=== PATIENT | female | born 1955 | race Caucasian/White ===

== ENCOUNTER 2017-03-12 15:00 | Inpatient (IN) | payer BC ==
[~2017-03-12] VITALS: Ht 170.2 cm; Wt 109.1 kg
--- NOTE | 2017-03-12 15:25 | ERA ---
ER Documentation Chief Complaint Date/Time DATE: 03/12/17 TIME: 15:25 Chief Complaint CAME IN VIA EMS DUE TO MECHANICAL FALL WITH LEFT ARM DEFORMATY HPI 61-year-old female presents to the ED by rescue ambulance complaining of severe pain and deformity of the left wrist and forearm after a trip and fall. She denies to be, head injury, loss of consciousness neck or back pain. No chest pain, palpitations shortness of breath. No abdominal pain, nausea vomiting. No elbow or shoulder pain. ROS All systems reviewed and are negative except as per history of present illness. Medications Home Meds Reported Medications Levothyroxine Sodium* (Levothyroxine Sodium*) 75 Mcg Tablet, 75 MCG PO BEFORE BREAKFAST, #30 TAB 03/12/17 Allergies Allergies: Coded Allergies: Penicillins (Unverified Allergy, Unknown, 03/12/17) PMhx/Soc Medical and Surgical Hx: pt denies Medical Hx, pt denies Surgical Hx History of Surgery: No Anesthesia Reaction: No Hx Neurological Disorder: No Hx Respiratory Disorders: No Hx Cardiac Disorders: No Hx Psychiatric Problems: No Hx Miscellaneous Medical Probl: Yes (Thyroid) Hx Alcohol Use: Yes Hx Substance Use: No Hx Tobacco Use: No Smoking Status: Never smoker FmHx No diabetes or stroke. Not relevant to presenting complaint. Physical Exam Vitals Vital Signs Date Time Temp Pulse Resp B/P Pulse Ox O2 Delivery O2 Flow Rate FiO2 03/12/17 16:36 79 129/79 03/12/17 15:03 98.5 82 18 104/76 98 Physical Exam Const: [] Head: Atraumatic Eyes: Normal Conjunctiva ENT: Normal External Ears, Nose and Mouth. Neck: Full range of motion..~ No meningismus. Resp: Clear to auscultation bilaterally Cardio: Regular rate and rhythm, no murmurs Abd: Soft, non tender, non distended. Normal bowel sounds Skin: No petechiae or rashes Back: No midline or flank tenderness Ext: No cyanosis, or edema Neur: Awake and alert Psych: Normal Mood and Affect Result Diagram: 03/12/17 1600 03/12/17 1600 Results 24 hrs Laboratory Tests Test 03/12/17 16:00 White Blood Count 8.310^3/ul Red Blood Count 4.0910^6/ul Hemoglobin 12.7g/dl Hematocrit 37.3% Mean Corpuscular Volume 91.2fl Mean Corpuscular Hemoglobin 31.1pg Mean Corpuscular Hemoglobin Concent 34.0g/dl Red Cell Distribution Width 13.9% Platelet Count 83822^3/UL Mean Platelet Volume 10.8fl Neutrophils % 65.6% Lymphocytes % 25.3% Monocytes % 6.3% Eosinophils % 1.8% Basophils % 0.8% Nucleated Red Blood Cells % 0.0/100WBC Neutrophils # 5.410^3/ul Lymphocytes # 2.110^3/ul Monocytes # 0.510^3/ul Eosinophils # 0.210^3/ul Basophils # 0.110^3/ul Nucleated Red Blood Cells # 0.010^3/ul Sodium Level 138mmol/L Potassium Level 3.7mmol/L Chloride Level 107mmol/L Carbon Dioxide Level 20mmol/L Anion Gap 15 Blood Urea Nitrogen 17mg/dl Creatinine 0.92mg/dl Glucose Level 123mg/dl Calcium Level 9.3mg/dl Current Medications Medications (Trade) Dose Ordered Sig/Julia Route PRN Reason Start Time Stop Time Status Last Admin Dose Admin Hydromorphone HCl (Dilaudid) 1 mg ONCE ONCE IV 03/12/17 15:30 03/12/17 15:31 DC 03/12/17 15:32 Ondansetron HCl (Zofran Inj) 4 mg ONCE ONCE IV 03/12/17 15:30 03/12/17 15:31 DC 03/12/17 15:32 Diphtheria/ Tetanus/Acell Pertussis 0.5 ml 0.5 ml ONCE ONCE IM* 03/12/17 15:30 03/12/17 15:31 DC 03/12/17 15:32 Cefazolin Sodium (Ancef 1 Gm/50 ml (Pmx)) 50 ml @ 100 mls/hr ONCE IVPB 03/12/17 15:30 03/12/17 15:59 DC 03/12/17 16:05 Hydromorphone HCl (Dilaudid) 1 mg ONCE STAT IV 03/12/17 17:06 03/12/17 17:07 DC 03/12/17 17:11 PROCEDURE: XR Left Wrist. CLINICAL INDICATION: Trauma, fracture TECHNIQUE: AP, lateral and oblique views of the left wrist were performed. COMPARISON: No prior studies are available for comparison. FINDINGS: There is a comminuted intra-articular impacted fracture of the distal radius. There is also a fracture of the distal ulna with approximate 1 shaft width anterior displacement of the distal fracture fragment and approximate 2 cm overriding of fracture fragments. No definite dislocation is seen. There is diffuse soft tissue swelling. There is the suggestion of small foci of air in the dorsal ulnar distal forearm wrist soft tissues which could be secondary to open fracture. IMPRESSION: There is a comminuted intra-articular impacted fracture of the distal radius. There is also a fracture of the distal ulna with approximate 1 shaft width anterior displacement of the distal fracture fragment and approximate 2 cm overriding of fracture fragments. No definite dislocation is seen. There is diffuse soft tissue swelling. There is the suggestion of small foci of air in the dorsal ulnar distal forearm wrist soft tissues which could be secondary to open fracture. RPTAT: HJES .Gagandeep Knowles MD, MD Date Time Electronically viewed and signed by .Gagandeep Knowles MD, on 03/12/2017 16:08 .S/ Procedures/MDM DOCUMENTS REVIEWED: ED nurse, no prior records PROCEDURES: Wound care. Irrigation with normal saline and Betadine dressing. Short arm volar splint. REEXAMINATION/REEVALUATION: Time:17:20. Splint Assessment: Neurovascularly intact post splint placement with good fit. MEDICAL DECISION MAKIN-year-old female presents to the ED by rescue ambulance complaining of severe pain and deformity of the left wrist and forearm after a trip and fall. Patient sustained a comminuted, displaced, or articular open distal radius fracture. As of 1 g IV piggyback and Dilaudid for pain. Went place. Urgent orthopedic surgery consult obtained. No head injury or syncope. Patient will be admitted for pain control and urgent surgical intervention. Counseled patient regarding diagnosis, diagnostic results and plan for admission. CALLS/CONSULTS: Dr. Rendon, Recommends admission, intravenous antibiotics and n.p.o. after midnight.. PATIENT CARE TRANSITIONED: Time: 17:00, Dr. Cullen. Departure Diagnosis: Primary Impression: Injury of upper extremity Qualified Code: S49.92XA - Injury of left upper extremity, initial encounter Additional Impression: Open fracture of distal end of radius Qualified Code: S52.572B - Other type I or II open intra-articular fracture of distal end of left radius, initial encounter Condition: Serious RETA VAN MD Mar 12, 2017 15:25 Departure Diagnosis: Primary Impression: Injury of upper extremity Qualified Code: S49.92XA - Injury of left upper extremity, initial encounter Additional Impression: Open fracture of distal end of radius Qualified Code: S52.572B - Other type I or II open intra-articular fracture of distal end of left radius, initial encounter Condition: Serious RETA VAN MD Mar 12, 2017 15:25
[2017-03-12] MEDS ORDERED: DIPHTH/TET/ACEL PERTUSS (ADULT) 0.5 ML VIAL IM* ONE (15:30)
[2017-03-12] MEDS ORDERED: ONDANSETRON 4 MG INJ IV ONE (15:30)
[2017-03-12] MEDS ORDERED: HYDROmorphONE 2 MG/ML SYG IV ONE (15:30)
[2017-03-12] MEDS ORDERED: CEFAZOLIN 1 GM/50 ML (PMX) 50 ML IVPB SCH (15:30)
--- NOTE | 2017-03-12 16:08 | RADRPT ---
PROCEDURE: XR Forearm. CLINICAL INDICATION: Trauma, fracture TECHNIQUE: AP and lateral views of the left forearm were obtained. COMPARISON: X-rays of the left wrist of 03/12/2017 FINDINGS: There is a comminuted intra-articular impacted fracture of the distal radius. There is also a fractu re of the distal ulna with approximate 1 shaft width anterior displacement of the distal fracture fr agment and approximate 2 cm overriding of fracture fragments. No definite dislocation is seen. There is diffuse soft tissue swelling. There is the suggestion of small foci of air in the dorsal ulnar d istal forearm wrist soft tissues which could be secondary to open fracture. The olecranon process of the ulna is not included on the radiographs. IMPRESSION: There is a comminuted intra-articular impacted fracture of the distal radius. There is also a fract ure of the distal ulna with approximate 1 shaft width anterior displacement of the distal fracture f ragment and approximate 2 cm overriding of fracture fragments. There is diffuse soft tissue swelling . There is the suggestion of small foci of air in the dorsal ulnar distal forearm wrist soft tissues which could be secondary to open fracture. RPTAT: HJES .Gagandeep Knowles MD, Date Time Electronically viewed and signed by .Gagandeep Knowles MD, on 03/12/2017 16:07 .S/
--- NOTE | 2017-03-12 16:09 | RADRPT ---
PROCEDURE: XR Left Wrist. CLINICAL INDICATION: Trauma, fracture TECHNIQUE: AP, lateral and oblique views of the left wrist were performed. COMPARISON: No prior studies are available for comparison. FINDINGS: There is a comminuted intra-articular impacted fracture of the distal radius. There is also a fractu re of the distal ulna with approximate 1 shaft width anterior displacement of the distal fracture fr agment and approximate 2 cm overriding of fracture fragments. No definite dislocation is seen. There is diffuse soft tissue swelling. There is the suggestion of small foci of air in the dorsal ulnar d istal forearm wrist soft tissues which could be secondary to open fracture. IMPRESSION: There is a comminuted intra-articular impacted fracture of the distal radius. There is also a fractu re of the distal ulna with approximate 1 shaft width anterior displacement of the distal fracture fr agment and approximate 2 cm overriding of fracture fragments. No definite dislocation is seen. There is diffuse soft tissue swelling. There is the suggestion of small foci of air in the dorsal ulnar d istal forearm wrist soft tissues which could be secondary to open fracture. RPTAT: HJES .Gagandeep Knowles MD, MD Date Time Electronically viewed and signed by .Gagandeep Knowles MD, on 03/12/2017 16:08 .S/
[2017-03-12] MEDS ORDERED: LEVO75TA5 PO (16:11)
[2017-03-12 16:14] LABS: BASOPHIL # 0.1 10^3/ul (0.0-0.1); BASOPHILS % 0.8 % (0.0-2.0); EOSINOPHILS # 0.2 10^3/ul (0.0-0.5); EOSINOPHILS % 1.8 % (0.0-7.0); HEMATOCRIT 37.3 % (37.0-47.0); HEMOGLOBIN 12.7 g/dl (12.0-16.0); LYMPHOCYTES # 2.1 10^3/ul (0.8-2.9); LYMPHOCYTES % 25.3 % (15.0-51.0); MEAN CORPUSCULAR HEMOGLOBIN 31.1 pg (29.0-33.0); MEAN CORPUSCULAR VOLUME 91.2 fl (82.0-101.0); MEAN PLATELET VOLUME 10.8 fl (7.4-10.4); MONOCYTE # 0.5 10^3/ul (0.3-0.9); MONOCYTES % 6.3 % (0.0-11.0); NEUTROPHIL # 5.4 10^3/ul (1.6-7.5); NEUTROPHILS % 65.6 % (39.0-77.0); PLATELET COUNT 215 10^3/UL (140-415); RED BLOOD COUNT 4.09 10^6/ul (4.20-5.40); RED CELL DISTRIBUTION WIDTH 13.9 % (11.5-14.5); WHITE BLOOD COUNT 8.3 10^3/ul (4.8-10.8)
[2017-03-12 16:31] LABS: CALCIUM 9.3 mg/dl (8.4-10.2); CREATININE 0.92 mg/dl (0.44-1.00); POTASSIUM 3.7 mmol/L (3.5-5.1)
[2017-03-12] MEDS ORDERED: HYDROmorphONE 1 MG/ML SYG IV STA (17:06)
[2017-03-12] MEDS ORDERED: ONDANSETRON 4 MG INJ IV PRN (17:30)
[2017-03-12] MEDS ORDERED: ACETAMINOPHEN 325 MG TAB PO PRN (17:30)
--- NOTE | 2017-03-12 18:08 | HP ---
Date/Time of Note Date/Time of Note DATE: 03/12/17 TIME: 18:05 Assessment/Plan VTE Prophylaxis VTE Prophylaxis Intervention: LMWH Assessment/Plan Chief Complaint/Hosp Course 61 yo female with h/o hypothyroid who presents after fall leading to radius and ulna fracture requiring surgery - NPO after midnight for OR in AM per Dr Hector - Abx for open wound - Pain control DVT ppx Hypothyroidism: - Continue home meds Problems: HPI/ROS Admit Date/Time Admit Date/Time Hx of Present Illness 61 yo female with hypothyroidism who presents after a mechanical fall leading to forearm fracture. XR in ED shows "a comminuted intra-articular impacted fracture of the distal radius. There is also a fracture of the distal ulna with approximate 1 shaft width anterior displacement of the distal fracture fragment and approximate 2 cm overriding of fracture fragments. There is diffuse soft tissue swelling. There is the suggestion of small foci of air in the dorsal ulnar distal forearm wrist soft tissues which could be secondary to open fracture." Splint was placed Dr Hector contacted who recommends admission and OR tomorrow Patient has been given pain med, still in mild pain PMH/Family/Social Past Medical History Medical History: no pertinent history Past Surgical History Past Surgical Hx: no surgical history Family History Significant Family History: no pertinent family hx Social History Alcohol Use: none Smoking Status: Never smoker Drug Use: none Exam/Review of Systems Vital Signs Vitals Vital Signs Date Time Temp Pulse Resp B/P Pulse Ox O2 Delivery O2 Flow Rate FiO2 03/12/17 16:36 79 129/79 03/12/17 15:03 98.5 18 98 Exam Exam LUE in splint and wrapped. Sensation in fingers in tact. Good cap refill and palpable pulses in wrist Constitutional: alert, oriented, well developed Psych: nl mood/affect, no complaints Head: atraumatic, normocephalic Eyes: EOMI, PERRL, nl conjunctiva, nl lids, nl sclera ENMT: nl external ears & nose, nl lips & teeth, nl nasal mucosa & septum Neck: non-tender, supple Respiratory: clear to auscultation, normal air movement Cardiovascular: nl pulses, regular rate and rhythm Gastrointestinal: nl liver, spleen, non-tender, soft Musculoskeletal: nl extremities to inspection Extremities: normal pulses Neurological: FURNITURE SERVICER II-XII intact, nl mental status, nl speech, nl strength Skin: nl turgor, No rash or lesions Lymph: nl lymph nodes Labs Result Diagram: 03/12/17 1600 03/12/17 1600 ZACK PATRICIO MD Mar 12, 2017 18:08
[2017-03-12] MEDS ORDERED: NACL 0.9% 3 ML SYG IV SCH (18:30)
[2017-03-12 21:05] VITALS: BP 119/68; RESP 17
[2017-03-12] MEDS: HYDROmorphONE 2 MG/ML SYG IV PRN (22:30)
[2017-03-12] MEDS: CEFAZOLIN 1 GM/50 ML (PMX) 50 ML IVPB SCH (22:30)
[2017-03-13] VITALS (16 sets, daily range): BP systolic 100–164; BP diastolic 56–82; PULSE 66–94; RESP 17–23; Ht 170.2 cm; Wt 109.1 kg
[2017-03-13] MEDS: HYDROmorphONE 2 MG/ML SYG IV PRN (03:05)
[2017-03-13] MEDS: CEFAZOLIN 1 GM/50 ML (PMX) 50 ML IVPB SCH ×2 (05:40→13:33)
[2017-03-13] MEDS ORDERED: SUCCINYLCHOLINE CHLORIDE 100 MG/5 ML SYG IV ONE (07:00)
[2017-03-13] MEDS ORDERED: ACETAMINOPHEN 1000 MG/100 ML IVPB ONE (07:00)
[2017-03-13] MEDS ORDERED: EPHEDrine SULFATE 50 MG/5 ML SYG ONE (07:00)
[2017-03-13] MEDS ORDERED: FENTAnyl 50 MCG/ML VIAL ONE (07:22)
[2017-03-13] MEDS ORDERED: PROPOFOL 20 ML ONE (07:22)
[2017-03-13] MEDS ORDERED: LIDOCAINE 2% (SDV) 5 ML INJ ONE (07:22)
[2017-03-13] MEDS ORDERED: MIDAZOLAM 1 MG/ML 2 ML INJ ONE (07:22)
[2017-03-13] MEDS ORDERED: POLYMYXIN/BACITRACIN 1L IRRIG ONE (07:45)
[2017-03-13] MEDS ORDERED: oxyCODONE 5 MG TAB PO PRN ×2 (08:00)
[2017-03-13] MEDS ORDERED: EPHEDrine SULFATE 50 MG/5 ML SYG IV PRN (08:00)
[2017-03-13] MEDS ORDERED: MEPERIDINE 25 MG INJ IV PRN (08:00)
[2017-03-13] MEDS ORDERED: hydrALAzine 20 MG INJ IV PRN (08:00)
[2017-03-13] MEDS ORDERED: DIPHENHYDRAMINE 50 MG INJ IV PRN (08:00)
[2017-03-13] MEDS ORDERED: HYDROmorphONE (0.2 MG/ML) 10ML SYG IV PRN ×2 (08:00)
[2017-03-13] MEDS ORDERED: ONDANSETRON 4 MG INJ IV PRN ×2 (08:00→09:00)
[2017-03-13] MEDS ORDERED: FENTAnyl 50 MCG/ML VIAL IV PRN (08:00)
[2017-03-13] MEDS ORDERED: LABETALOL HCL 20MG INJ IV PRN (08:00)
[2017-03-13] MEDS ORDERED: PROCHLORPERAZINE 10 MG INJ IV PRN (08:00)
[2017-03-13] MEDS ORDERED: CLINDAMYCIN 900 MG/D5W (PMX) 50 ML IVPB ONE (08:13)
[2017-03-13] MEDS ORDERED: ONDANSETRON 4 MG INJ ONE (08:24)
[2017-03-13] MEDS ORDERED: DEXAMETHASONE 4 MG/ML 1 ML INJ ONE (08:24)
[2017-03-13] MEDS ORDERED: METOCLOPRAMIDE 10 MG INJ ONE (08:24)
--- NOTE | 2017-03-13 08:35 | RADRPT ---
PROCEDURE: XR Chest. CLINICAL INDICATION: Preop. TECHNIQUE: Single frontal chest x-ray. COMPARISON: None available. FINDINGS: The cardiac silhouette is mildly enlarged. Aortic atherosclerotic vascular calcifications are ident ified. No pneumothorax, pleural effusion or consolidation is seen. No acute osseous abnormality is noted. IMPRESSION: 1. Mild cardiomegaly and aortic atherosclerosis. 2. Otherwise no acute pulmonary abnormality. RPTAT: AA .Que Powell MD, Date Time Electronically viewed and signed by .Que Powell MD, MD on 03/13/2017 08:34 .N/
--- NOTE | 2017-03-13 08:46 | SIPON ---
Date/Time of Note Date/Time of Note DATE: 03/13/17 TIME: 08:42 Operative Report Preoperative Diagnosis Left closed distal radius/ulnar styloid fracture Postoperative Diagnosis Type I open comminuted distal radius fracture Left ulnar styloid fracture Operation/Procedure Performed 1. Irrigation and debridement of open fracture 2. Left distal radius closed reduction under anesthesia with casting Surgeon Héctor Rendon MD speech therapy assistant None Anesthesia: general Estimated blood loss: none Transfusion Required none Specimen None Grafts/Implants none Complications none NATI RENDON MD Mar 13, 2017 08:46
[2017-03-13] MEDS ORDERED: morphine 2 MG INJ IV PRN (09:00)
[2017-03-13] MEDS ORDERED: HYDROCODONE/APAP (5/325) TAB PO PRN (09:00)
--- NOTE | 2017-03-13 09:18 | RADRPT ---
PROCEDURE: XR Wrist. CLINICAL INDICATION: Left wrist pain TECHNIQUE: 2 views of the left wrist were performed. COMPARISON: Radiographs of the left wrist March 12, 2017 FINDINGS: Overlying cast obscures fine bony detail. There is a comminuted distal radial metaphysis fracture with mild volar cortical offset. There is a moderately displaced distal ulnar metaphysis fracture. There is widening of the distal radioulnar joint and suggestion of distal radioulnar joint instabili ty. There is diffuse soft tissue swelling. IMPRESSION: 1. Comminuted distal radial and ulnar fractures as above. Alignment appears slightly improved though overlying cast obscures fine bony detail. 2. Distal radioulnar joint widening. 3. Diffuse soft tissue swelling. RPTAT: UU .Chano Underwood MD, Date Time Electronically viewed and signed by .Chano Underwood MD, on 03/13/2017 09:17 .K/
--- NOTE | 2017-03-13 09:24 | CONS ---
DATE OF ADMISSION: 03/12/2017 DATE OF CONSULTATION: 03/13/2017 CHIEF COMPLAINT: A 61-year-old, [id number] female who sustained a fall onto left outstretched hand. She is complaining of pain in the left wrist. She denies any numbness or tingling. She has no other complaints. PAST MEDICAL HISTORY: Obesity. MEDICATION: None. PAST SURGICAL HISTORY: None. SOCIAL HISTORY: Denies tobacco, alcohol, or drug use. FAMILY HISTORY: Noncontributory. ALLERGIES: NO KNOWN DRUG ALLERGIES. PHYSICAL EXAMINATION: VITAL SIGNS: Temperature 98.5, blood pressure 129/79, pulse is 79. GENERAL APPEARANCE: No acute distress, comfortable. EXTREMITIES: Left wrist: No open wounds. There is deformity of the left wrist. Sensation intact to light touch in distribution of median, ulnar, and radial nerves. Capillary refill is less than 2 seconds. X-RAYS: Left wrist: There is a comminuted intra-articular displaced distal radius fracture. There is a fracture of the ulnar styloid. The fracture extends to the radial shaft. No other fractures, dislocations are seen. IMPRESSION: A 61-year-old female with a left displaced comminuted intra-articular closed distal radius fracture. PLAN: The patient will be n.p.o. The plan will be to perform a closed reduction and casting versus possible external fixation. Following the procedure, patient will be discharged home. She will follow up with an orthopedic hand surgeon for further surgical intervention. I discussed the risks associated with the procedure, which include infection, malunion, nonunion, pain, carpal tunnel syndrome; risks associated with the casting, including skin breakdown; risks associated with anesthesia. Informed consent was obtained. All questions were answered to her satisfaction. Dictated By: Velma Rendon MD /mariela/gale /Document#: [id number]
--- NOTE | 2017-03-13 09:32 | OPR ---
DATE OF OPERATION: 03/13/2017 PREOPERATIVE DIAGNOSIS: Left closed distal radius and ulnar styloid fracture. POSTOPERATIVE DIAGNOSES: 1. Type 1 open left distal radius fracture. 2. Left ulnar styloid fracture. SURGEON: Velma Rendon MD YOUTH PROGRAM DIRECTOR: None. OPERATION PERFORMED: 1. Irrigation and debridement of left distal radius. 2. Closed reduction under anesthesia with application of short- arm cast of left wrist. ANESTHESIA: General. ANESTHESIA: . ESTIMATED BLOOD LOSS: None COMPLICATIONS: None. SPECIMENS: None. DISPOSITION: PACU in stable condition. INDICATIONS: This is a 61-year-old female who had a great are ground-level fall resulting in a left distal radius fracture. Risks, benefits, alternatives to the procedure were discussed with the patient. Informed consent was obtained. The risks of the procedure include but are not limited to: Infection, malunion, nonunion, instability of the wrist, continued pain and need for open reduction and internal fixation, need for wrist fusion, stiffness of the wrist, limitation of motion, risks associated with anesthesia, the risks associated with cast placement including skin maceration, as well as . OPERATIVE PROCEDURE: Patient was met in the preoperative suite and the correct operative site was confirmed and marked. She was then brought into the operating room. After induction of general anesthesia, she was placed in the supine position on the operating table. At this point, a time out was taken to identify the correct operative site and confirm that preoperative antibiotics consisting of clindamycin were administered. The splint was removed. There were a couple of poke holes that were present on the dorsal aspect of the wrist. There were no open wounds. It was assumed that the patient has a type 1 fracture. X-rays were taken, which demonstrated a severely comminuted left distal radius fracture with intra-articular extension. There is also fracture of the ulnar styloid with possible DRUJ instability. After irrigation and debridement of the left distal radius, a closed reduction maneuver was performed. The closed reduction maneuver resulted in obtaining the length of the distal radius which was confirmed with x-rays including two views of the left wrist. X-rays demonstrated that the length was restored. There was severe comminution of the fracture. On x-ray it appeared that the TFCC was disrupted with possible DRUJ instability. Distal radius plates were not available at this time. Decision was made with application of a cast to maintain the length and rotation. The short-arm cast was placed. X-rays were again taken, which demonstrated that the length was restored. There were no complications. The patient was awakened, taken to the postop care unit in stable condition. POSTOPERATIVE CARE: The patient will have a sling. She will receive two additional doses of IV antibiotics including clindamycin. She will receive medication for pain control. The patient will require open reduction internal fixation of the left distal radius. Given the complexity of the fracture, it is best that the patient followup with an orthopedic hand surgeon. Referrals will be provided for the patient. I will be glad to follow the patient along. Dictated By: Velma Rendon MD /mariela/chuckie /Document#: [id number]
--- NOTE | 2017-03-13 09:48 | RADRPT ---
PROCEDURE: Intraoperative imaging of the left wrist with fluoroscopy. CLINICAL INDICATION: Left was fracture Intraoperative. TECHNIQUE: 13 images of the left wrist were obtained in the operating room with an image intensifi er. No radiologist was in attendance. 19 seconds of fluoroscopy time was used. COMPARISON: No prior study is available for comparison. FINDINGS: There are distal radial and ulnar metaphysis fractures, comminuted and displaced. IMPRESSION: 1. Satisfactory intraoperative imaging of the distal radial and ulnar fractures. Please see matt jiménez dictated operative note for full evaluation. RPTAT: UU .Chano Underwood MD, Date Time Electronically viewed and signed by .Chano Underwood MD, on 03/13/2017 09:48 .K/
[2017-03-13] MEDS ORDERED: CLINDAMYCIN 900 MG/D5W (PMX) 50 ML IVPB SCH (12:00)
--- NOTE | 2017-03-13 13:48 | DS ---
Date/Time of Note Date/Time of Note DATE: 03/13/17 TIME: 13:47 Discharge Summary Admission/Discharge Info Admit Date/Time Mar 12, 2017 at 17:07 Discharge Date/Time Discharge Diagnosis Radius fracture Hx of Present Illness 61 yo female with hypothyroidism who presents after a mechanical fall leading to forearm fracture. XR in ED shows "a comminuted intra-articular impacted fracture of the distal radius. There is also a fracture of the distal ulna with approximate 1 shaft width anterior displacement of the distal fracture fragment and approximate 2 cm overriding of fracture fragments. There is diffuse soft tissue swelling. There is the suggestion of small foci of air in the dorsal ulnar distal forearm wrist soft tissues which could be secondary to open fracture." Splint was placed Dr Hector contacted who recommends admission and OR tomorrow Patient has been given pain med, still in mild pain Hospital Course 61 yo female with h/o hypothyroid who presents after fall leading to radius and ulna fracture requiring surgery The patient was treated with Ancef for infection ppx She went to the OR w Dr Hector on HD1: "Patient was met in the preoperative suite and the correct operative site was confirmed and marked. She was then brought into the operating room. After induction of general anesthesia, she was placed in the supine position on the operating table. At this point, a time out was taken to identify the correct operative site and confirm that preoperative antibiotics consisting of clindamycin were administered. The splint was removed. There were a couple of poke holes that were present on the dorsal aspect of the wrist. There were no open wounds. It was assumed that the patient has a type 1 fracture. X-rays were taken, which demonstrated a severely comminuted left distal radius fracture with intra-articular extension. There is also fracture of the ulnar styloid with possible DRUJ instability. After irrigation and debridement of the left distal radius, a closed reduction maneuver was performed. The closed reduction maneuver resulted in obtaining the length of the distal radius which was confirmed with x-rays including two views of the left wrist. X-rays demonstrated that the length was restored. There was severe comminution of the fracture. On x-ray it appeared that the TFCC was disrupted with possible DRUJ instability. Distal radius plates were not available at this time. Decision was made with application of a cast to maintain the length and rotation. The short-arm cast was placed. X-rays were again taken, which demonstrated that the length was restored. There were no complications. The patient was awakened, taken to the postop care unit in stable condition." The patient was referred to hand specialist at [facility] at time of discharge for further management Home Meds Reported Medications Levothyroxine Sodium* (Levothyroxine Sodium*) 75 Mcg Tablet, 75 MCG PO BEFORE BREAKFAST, #30 TAB 03/12/17 Primary Care Provider Not On Staff Doctor Pending Labs Laboratory Tests Test 03/12/17 16:00 White Blood Count 8.310^3/ul (4.8-10.8) Red Blood Count 4.0910^6/ul (4.20-5.40) Hemoglobin 12.7g/dl (12.0-16.0) Hematocrit 37.3% (37.0-47.0) Mean Corpuscular Volume 91.2fl (82.0-101.0) Mean Corpuscular Hemoglobin 31.1pg (29.0-33.0) Mean Corpuscular Hemoglobin Concent 34.0g/dl (32.0-37.0) Red Cell Distribution Width 13.9% (11.5-14.5) Platelet Count 84335^3/UL (140-415) Mean Platelet Volume 10.8fl (7.4-10.4) Neutrophils % 65.6% (39.0-77.0) Lymphocytes % 25.3% (15.0-51.0) Monocytes % 6.3% (0.0-11.0) Eosinophils % 1.8% (0.0-7.0) Basophils % 0.8% (0.0-2.0) Nucleated Red Blood Cells % 0.0/100WBC (0.0-0.0) Neutrophils # 5.410^3/ul (1.6-7.5) Lymphocytes # 2.110^3/ul (0.8-2.9) Monocytes # 0.510^3/ul (0.3-0.9) Eosinophils # 0.210^3/ul (0.0-0.5) Basophils # 0.110^3/ul (0.0-0.1) Nucleated Red Blood Cells # 0.010^3/ul (0.0-0.0) Sodium Level 138mmol/L (135-144) Potassium Level 3.7mmol/L (3.5-5.1) Chloride Level 107mmol/L (97-110) Carbon Dioxide Level 20mmol/L (21-31) Anion Gap 15 (8-16) Blood Urea Nitrogen 17mg/dl (7-20) Creatinine 0.92mg/dl (0.44-1.00) Glucose Level 123mg/dl (70-220) Calcium Level 9.3mg/dl (8.4-10.2) ZACK PATRICIO MD Mar 13, 2017 13:48
[2017-03-13] MEDS ORDERED: OXYC-279 PO (13:55)
--- NOTE | 2017-03-13 13:58 | QN ---
Documentation Comment brief prescribing note Attending hospitalist not yet on [facility] C2 rx pads. I have been asked to write discharge narcotics for this patient. [facility] database checked. No active scripts. 10 percocets rx'ed. MAUREEN PENDLETON MD Mar 13, 2017 13:58
--- NOTE | 2017-03-13 13:59 | PDOCDIS ---
Discharge Instructions DIAGNOSIS Discharge Diagnosis Radius fracture CONDITION Patient Condition: Good HOME CARE INSTRUCTIONS: Special Diet: Regular FOLLOW UP/APPOINTMENTS Follow-up Plan Make an appointment first thing tomorrow with [facility] orthopedic hand specialist Siddhartha Marcum [phone] You can take the Percocet prescribed to you for pain, as well as over the counter Ibuprofen, etc if needed Return to the hospital if you have any concerning symptoms ZACK PATRICIO MD Mar 13, 2017 13:59
--- NOTE | 2017-03-14 08:39 | RADRPT ---
Vent Rate: 57 bpm RR Interval: 0 msec MI Interval: 146 msec QRS Duration: 78 msec QT Interval: 422 msec QTC Interval: 410 msec P-R-T [place]: 46 - 58 - 44 degrees Sinus bradycardia Otherwise normal ECG Electronically Signed By: Oswaldo Rojas [id number]
[2017-03-14] MEDS ORDERED: INFLUENZA VIRUS VACCINE 0.5 ML (DISPENSING) IM* ONE (09:00)
== END 2017-03-13 16:00 | disposition home or self-care (01) | DRG 563 ==
LOC: E/R 15:00 → PP2 17:07
PROVIDERS: ADMIT Internal Medicine; ATTEND Internal Medicine
PROC: 0HDEXZZ Extraction of Left Lower Arm Skin, External Approach (ICD-10-PCS; 2017-03-13)
PROC: 0PSJXZZ Reposition Left Radius, External Approach (ICD-10-PCS; principal; 2017-03-13 07:30)
DX: S52.572B Other intraarticular fracture of lower end of left radius, initial encounter for open fracture type I or II (principal); S52.612A Displaced fracture of left ulna styloid process, initial encounter for closed fracture; W18.30XA Fall on same level, unspecified, initial encounter; E03.9 Hypothyroidism, unspecified; M25.332 Other instability, left wrist; S63.592A Other specified sprain of left wrist, initial encounter; E66.9 Obesity, unspecified; Z68.37 Body mass index [BMI] 37.0-37.9, adult
CPT/HCPCS: 71010; 73090; 73100; 80048; 85025; 90471; 90715; 93005; 96374; 96375; 96376; J0131; J0690; J1100; J1170; J2250; J2405; J2765; J3010; J7999